=== PATIENT | female | born 1940 | race African-American/Black ===

== ENCOUNTER 2020-02-22 16:40 | Inpatient (IN) | payer MEDICARE ==
[~2020-02-22] VITALS: Ht 165.1 cm; Wt 49.9 kg
[2020-02-22 16:42] VITALS: BP 134/60
[2020-02-22 17:10] LABS: ABSOLUTE NEUTROPHILS 16.7 thou/uL (1.4-8.2); BASOPHILS 0.1 % (0.0-2.0); EOSINOPHILS 0.4 % (0.0-3.0); HEMATOCRIT 35.7 % (37.0-47.0); HEMOGLOBIN 11.8 gm/dL (12.0-15.0); LYMPHOCYTES 6.9 % (24.0-44.0); MCH 27.1 pg (26.0-34.0); MCHC 33.1 g/dL (28.0-37.0); MCV 81.9 fL (80.0-100.0); MONOCYTES 5.9 % (1.0-8.0); PLATELET COUNT 259 thou/uL (150-400); POLYS 86.7 % (36.0-66.0); RBC 4.36 mil/uL (4.20-5.00); RDW 14.7 % (10.5-14.5); WBC 19.3 thou/uL (4.0-11.0)
[2020-02-22 17:21] LABS: CALCIUM 8.7 mg/dL (8.5-10.1); CREATININE 1.8 mg/dL (0.6-1.0); POTASSIUM 4.3 mmol/L (3.5-5.1)
[2020-02-22 17:28] LABS: ALBUMIN 1.9 g/dL (3.4-5.0); TOTAL BILIRUBIN 0.5 mg/dL (0.2-1.0); TOTAL PROTEIN 6.9 g/dL (6.4-8.2)
--- NOTE | 2020-02-22 17:33 | NUR ---
BRANDI TORRES - SON [phone] - CELL [phone] - [address] [place]SE [place], [id number] LETY TORRES - GRANDSON [phone]
[2020-02-22 19:06] LABS: URINE BILIRUBIN NEGATIVE (Negative); URINE BLOOD TRACE (Negative); URINE CLARITY CLEAR; URINE COLOR YELLOW; URINE GLUCOSE-RANDOM* NEGATIVE (Negative); URINE KETONES NEGATIVE (Negative); URINE LEUKOCYTES-REFLEX NEGATIVE (Negative); URINE NITRITE-REFLEX NEGATIVE (Negative); URINE PROTEIN (DIPSTICK) NEGATIVE (Negative)
[2020-02-22] MEDS ORDERED: ARICEPT10 M1 PO (19:16)
[2020-02-22] MEDS ORDERED: ROSUVASTATIN CA10 MG PO (19:16)
[2020-02-22] MEDS ORDERED: TAPAZOLE5 MG PO (19:18)
[2020-02-22 20:22] VITALS: BP 119/77
--- NOTE | 2020-02-22 20:28 | NUR ---
Report attempted to PRINCESS Scott. Unable to take report and will call back
--- NOTE | 2020-02-22 21:17 | NUR ---
SPOKE WITH SON BRANDI, DISCUSSED ROOM ASSIGNMENT AND WHEN POSSIBLE VISIT.
[2020-02-22 21:36] VITALS: BP 119/77
[2020-02-22 21:45] VITALS: BP 121/72; BP 1321/72
[2020-02-23 00:10] VITALS: BP 115/74
[2020-02-23 05:17] VITALS: BP 107/70
[2020-02-23 06:13] LABS: HEMATOCRIT 29.2 % (37.0-47.0); MCH 27.1 pg (26.0-34.0); MCHC 32.8 g/dL (28.0-37.0); MCV 82.8 fL (80.0-100.0); RBC 3.52 mil/uL (4.20-5.00); RDW 14.4 % (10.5-14.5); WBC 14.2 thou/uL (4.0-11.0)
[2020-02-23 06:22] LABS: HEMOGLOBIN 9.6 gm/dL (12.0-15.0)
[2020-02-23 06:50] LABS: ALBUMIN 1.5 g/dL (3.4-5.0); CALCIUM 7.9 mg/dL (8.5-10.1); CREATININE 1.4 mg/dL (0.6-1.0); POTASSIUM 3.6 mmol/L (3.5-5.1); TOTAL BILIRUBIN 0.6 mg/dL (0.2-1.0); TOTAL PROTEIN 5.5 g/dL (6.4-8.2)
[2020-02-23 07:47] VITALS: BP 100/50
--- NOTE | 2020-02-23 10:11 | NUR ---
PT SCREAMS OUT ANYTIME SHE IS TOUCHED OR MOVED. PT PREFERS TO LAY ON SIDE IN TIGHT POSITION. UNABLE TO ASSESS MUSCLE STRENGTH ACCURATELY PT IS NOT COOPERATIVE AND WITHDRAWN. SPOKE WITH PT SON. HE STATES THAT PT HAS REQUIRED HIM TO FEED HER FOR LAST SEVERAL WEEKS. STATES THAT HER SACRAL WOUND GREW RAPIDLY. REPORTS THAT PT ORIENTATION TO SELF IS AT BASELINE. STATES HE HAS ATTEMPTED TO SIT HER UP IN WHEELCHAIR RECENTLY WITH DIFFICULTY.
[2020-02-23 15:23] VITALS: BP 104/68
[2020-02-23 20:45] VITALS: BP 138/85
[2020-02-24 05:40] LABS: HEMATOCRIT 29.4 % (37.0-47.0); HEMOGLOBIN 9.5 gm/dL (12.0-15.0); MCHC 32.4 g/dL (28.0-37.0); MCV 83.3 fL (80.0-100.0); RBC 3.53 mil/uL (4.20-5.00); RDW 14.7 % (10.5-14.5); WBC 13.2 thou/uL (4.0-11.0)
[2020-02-24 05:50] LABS: CALCIUM 8.2 mg/dL (8.5-10.1); CREATININE 1.2 mg/dL (0.6-1.0); POTASSIUM 3.4 mmol/L (3.5-5.1)
--- NOTE | 2020-02-24 07:53 | NUR ---
Pt. was a transfer [facility] last night. She is oriented to self. Pt. will yell outloud when staff tries to clean her up or turn her. She tried to bite a gauge inspector when staff was cleaning her up. Dressing to her coccyx changed this am as it was soiled. Bed alarm is on.
[2020-02-24 08:10] VITALS: BP 119/66
--- NOTE | 2020-02-24 11:52 | NUR ---
Received awake on bed. On nothing per constantino- verified order with Dr Aguirre this AM since pt does not have definite schedule for surgery- as per Dr Aguirre- maintain patient on NPO- mouth swabs done. On MS- not on telemtry; no signs of chest pain, crushing sensation and heaviness. On room air. Vital signs stable. With vasquez in place- marcin care done; output measured and recorded accordingly. Incontinent of bowel, checked frequently and changed as needed. Pt turned on her sides, screams whenever she is touched- verified this with pt's son during his visit- she also do this at home. With sacral wounds- dressing changed this AM by night shift supervisor nurse, checked frequently and changed if needed. Falls bundle in place. With NS at 125cc/hr, infusing well at R hand- wrapped in coban. Verified with Dr Aguirre re: pt's nutrition since she remains on NPO- read on physician's notes re: PPN- none ordered, reached out to physician re: PPN orders, current order is NS at 125cc/hr. Pt's son Dalton visited this AM, update given, requested to talk to physician- contacted Dr Aguirre, contact number given to physician. Pt very tearful, offered re-assurance. To continue monitoring patient.
[2020-02-24 15:42] VITALS: BP 126/70
[2020-02-24 21:05] VITALS: BP 125/91
--- NOTE | 2020-02-25 05:38 | NUR ---
PATIENT ALERT AND ORIENTED TO SELF ONLY. FREQUENT TURNS FROM SIDE TO SIDE. PPN INFUSING W/O COMPLICATION. DENIES PAIN EXCEPT WHEN TURNING. REMAINS NPO WITH MOUTH SWABS. DR. MATHIAS IN THIS AM TO CHECK UP ON PATIENTS STATUS. STATED HE WILL FOLLOW-UP WITH THE FAMILY. LEWIS TO D/D WITH LUCHO URINE. RESTING QUIETLY. WILL MONITOR.
[2020-02-25 07:50] VITALS: BP 151/94
[2020-02-25 15:11] VITALS: BP 141/95
[2020-02-25 19:35] VITALS: BP 143/84
--- NOTE | 2020-02-25 20:00 | NUR ---
NPO changed to pureed diet. ate some food, poor appetite, but tolerated well, no n/v.
--- NOTE | 2020-02-26 04:21 | NUR ---
VSS-AFEBRILE. LUNGS CLEAR-ROOM AIR. AGITATED WITH ANY MOVEMENT OR MANIPULATION FOR CARE. TURNED AND OFFERED ORAL HYDRATION EVERY TWO HOURS FOR COMFORT. FALL PRECAUTIONS IN PLACE.
[2020-02-26 08:06] VITALS: BP 140/84
[2020-02-26 15:45] VITALS: BP 149/93
--- NOTE | 2020-02-26 15:57 | NUR ---
PT ADMITTED RELATED TO POOR APPETITE, INCREASING WOUND SIZE. CM REVIEWED CHART AND SPOKE WITH CARE TEAM. CM CALLED PT'S SON THIS DAY. HE INIDCATED THAT PT HAD BEEN LIVING IN A HOUSE WITH HIM LEAD BURNER HELPER. HE INIDCATED THAT PT HAD BEEN TOTAL CARE LEAD BURNER HELPER. HE INDICATED THAT PT HAS HOSPITAL BED FOR HOME USE. HE HAD LIFTED PT TO AND FROM BED TO CHANGE LINENS. HE INDICATED PT HADN'T BEEN WALKING IN [address] NATALIA LOUIS IN [facility]. SON INDICATED THAT HE ISN'T INTERESTED IN ANY INTERVENTION AT THIS TIME AND THAT HE WANTS FOR PT TO BE ON HOSPICE CARE. HE INDICATED THAT HE IS INTERESTED IN PT GOING TO A FACILITY ON HOSPICE SERVICES. CM PROVIDED HIM A LIST OF FACILITIES TO REVIEW. PHYSICIAN INDICATED THAT PT ISN'T APPROPTIATE FOR HOSPICE HOUSE ADMISSION AT THIS TIME. CM TO FOLLOW INDICATED WITH DC PLANNING.
--- NOTE | 2020-02-26 18:35 | NUR ---
ASSUMED CARE AT SHIFT CHANGE AND ASSESSMENT DOCUMENTED, VSS AND AFEBRILE. Q2 POSITIONED NEEDED FOR COMFORT. VISITED WITH SON AND HE UPDATED WITH POC. WILL CONTINUE TO MONITOR.
[2020-02-26 20:37] VITALS: BP 136/91
[2020-02-27 06:35] LABS: ALBUMIN 1.4 g/dL (3.4-5.0); CREATININE 0.8 mg/dL (0.6-1.0); PHOSPHORUS 2.6 mg/dL (2.5-4.9); POTASSIUM 3.4 mmol/L (3.5-5.1)
[2020-02-27 08:30] VITALS: BP 129/72
--- NOTE | 2020-02-27 12:44 | HC ---
[facility] [place] [place] [address] CONSULTATION Name: RUSSELL TORRES Room #: 460- ADM IN M.R.#: [id number] Admission: 02/22/20 Attend Phys: Shahram Aguirre Discharge: Date of : 38 Report #: [id number] THIS REPORT FOR: cc: DINORAH - Patricia family physician/PCP DINORAH - No family physician/PCP Lionel Jack MD ~ CC: Francisco COPELAND physician/PCP DATE OF SERVICE: 02/23/2020 WOUND CARE CONSULTATION PERSONAL PHYSICIAN: None. CHIEF COMPLAINT: Suspected stage 4 sacral decubitus ulcer. HISTORY OF PRESENT ILLNESS: This is an 79-year-old black female, who presented to the Emergency Department for increasing ulceration in her sacral region, which according to the son was very small approximately a week ago and has nearly doubled in size with increased amount of odor and drainage. The patient according to the records is bedbound and lives with her family with her son being the primary caregiver. The patient herself is unable to give any history secondary to underlying dementia. It is unclear whether she has had any other ulcerations in the past. We have been asked to care for the ulcer while she is here in the hospital. PAST MEDICAL HISTORY: Significant for dementia, hypercholesterolemia, severe debility with being bedbound. CURRENT MEDICATIONS: Aricept, Tapazole, rosuvastatin. DRUG ALLERGIES: None. SOCIAL HISTORY: It is unknown if the patient has a smoking history. FAMILY HISTORY AND REVIEW OF SYSTEMS: Unobtainable because of the patient's significant dementia. PHYSICAL EXAMINATION: VITAL SIGNS: The patient is afebrile. Vital signs are otherwise stable. GENERAL: This is a chronically ill-appearing black female who is cachectic and appears to be in mild distress secondary to symptoms. HEENT: Normocephalic, atraumatic. Mucous membranes are dry. Pupils are round. Sclerae white. NECK: Supple, nontender. [facility] [address] [place] [address] CONSULTATION Name: RUSSELL TORRES Room #: 460-P [facility]#: [id number] Admission: 02/22/20 Attend Phys: Shahram Aguirre Discharge: Date of : 38 Report #: [id number] LUNGS: Clear. HEART: Regular. ABDOMEN: Soft, nontender. Evaluation of sacral region reveals what appears to be a stage 4 decubitus ulcer with significant amount of slough and exposed bone centrally. There is moderate amount of foul-smelling odor. Periwounds mainly intact. There is fairly significant undermining circumferentially. EXTREMITIES: The patient tends to move all extremities without difficulty. Bilateral heels appear to be intact. NEUROLOGIC: Cranial nerves 2-12 grossly intact. Motor and sensory grossly intact. LABORATORY DATA: White count 14.2, hemoglobin 9.6. Sed rate 78. Lactic acid on arrival was 2.7, now down to 1.8, BUN 38, creatinine 1.4. Albumin is 1.5. IMPRESSION: 1. Stage 4 sacral decubitus ulcer present on admission with sepsis. 2. Sepsis secondary to #1. 3. Significant dementia. 4. Severe protein-calorie malnutrition, albumin 1.5. 5. Marked debility. PLAN: The patient will start Dakin's wet to dry dressings to the sacrococcygeal ulcer twice daily and p.r.n. We will put the patient on low air loss mattress, have her be turned every 2 hours. We will use heel protection at all time on the patient while in bed. General Surgery, Dr. Parish Mckee has been consulted to do a debridement as well as consider PEG tube placement and diverting colostomy to help heal this wound. I feel that without PEG tube and diverting colostomy, the chances of healing this significant ulceration would be very slim. After surgery, we will attempt possible rehabilitation with PT, OT as the patient is able. We will also make sure we maximize the patient's protein supplementation hopefully through a PEG tube to help in the healing process. We will continue all other meds including IV antibiotics. We will continue to follow the patient. I appreciate ability to consult. <ELECTRONICALLY SIGNED> By: Lionel Jack MD 02/27/20 [id number] [id number] Lionel Jack MD /nt
--- NOTE | 2020-02-27 16:25 | NUR ---
PT'S SON HAS LIST OF FACILITIES AND IS REVIEWING. CM AGAIN EXPLAINED IF HE IS WANTING TO ELECT HOSPICE SERVICES AT FACILITY THAT PT WOULD BE PATIENT PAY FOR ROOM AND BOARD. HE DOESN'T FEEL THAT HE IS CAPABLE OF PROVIDING CARE PT REQUIRES WITH ADDITIONAL SERVICES IN THE HOME ENVIROMENT. SON IS TO PROVIDE FACILITIES HE IS INTERESTED IN HAVING REFERRALS SENT TO. CM TO FOLLOW INDICATED WITH DC PLANNING.
[2020-02-27 19:17] VITALS: BP 155/89
--- NOTE | 2020-02-27 23:21 | NUR ---
ASSUMED PT CARE [id number]. PT IS AROUSABLE BUT REALLY ONLY TALKS WHEN BEING BOTHERED. PT WILL NOT OPEN HER MOUTH FOR WATER OR ANYTHING ORAL. HUNG AMPICILLIN. PT TOLD ME NOT TO TOUCH HER WHEN I TOLD HER I HAD EVENING MEDS AND THAT ONE OF THEM WAS A SHOT (HEPARIN). PT TOLD ME SHE DIDN'T WANT THE PILLS. WHEN MOVING THE PT SHE WOULD YELL OUT TO STOP. PT IS LAYING IN THE BED FAVORING HER LEFT SIDE. Q2 TURNS TO ALLEVIATE PRESSURE ON HER BOTTOM. WILL CONTINUE TO MONITOR.
[2020-02-28 07:25] VITALS: BP 149/92
--- NOTE | 2020-02-28 11:54 | NUR ---
Received awake on bed. On pureed diet- pt refusing meals; encouraged and assisted and offered snacks but still refused. On MS, not on telemetry; no signs of chest pain, crushing sensation and heaviness observed. On room air. Vital signs stable. With vasquez in place- output measured and recorded accordingly; marcin-care done; Incontinent of bowel- checked frequently and changed as needed. With D51/2NS at 80cc/hr, infusing well at R FA- wrapped in Coban. With sacral ulcer- dressing in place; wound photo to be taken today; dressing to be changed. Falls bundle in place. Pt turned on her sides regularly; with ?DTI on her foot, prafo boots ordered for patient- to be applied once available. Assisted in ADLs. Pt for possible comfort care/palliative- a/w son's decision. Mouth care done to patient. Pt seen and examined by Dr Cardoza this AM, to put pt back to telemetry- applied conveyor monitor to patient. As per CM, pt for covid swab- swab obtained and sent to lab. To continue monitoring patient.
--- NOTE | 2020-02-28 14:30 | NUR ---
SON ASKED THAT REFERRAL BE SENT TO [facility] FOR REVIEW FOR POSSIBLE ADMISSION [facility] WITH HOSPICE SERVICES. REFERRAL SENT. CM SPOKE WITH JERRY IN ADMISSIONS SHE IS AWARE OF REFERRAL AND WILL NOTIFY CM OF DETERMINATION. SHE INDICATED THAT DAILY ROOM AND BOARD RATE WOULD BE $223.00 AND THAT THEY WOULD LIKELY NEED 2 WEEKS PAYMENT UP FRONT. CM NOTIFIED SON OF THIS AND HE INDICATED THAT THEY WOULD BE ABLE TO MANAGE THAT. JERRY INDICATED THAT THEY USE [facility]. SON WAS AGREEABLE WITH REFERRAL BEING SENT TO THEM FOR REVIEW FOR POSSIBLE SERVICES UPON ADMISSION TO [facility]. CM TO FOLLOW INDICATED WITH DC PLANNING.
--- NOTE | 2020-02-28 15:47 | NUR ---
FAXED REFERRAL TO [facility] SPOKE WITH JERRY IN ADM SHE RECEIVED REFERRAL AND WILL REVIEW. FAXED REFERRAL/AND OR TO EVAL/TREAT TO [facility] SPOKE WITH RICHARD IN ADM SHE RECEIVED REFERRAL AND IS NEEDING PT'S SS# AND DPOA PAPERS SO OREN (MACIE) IS GOING TO SPEAK WITH PT'S SON AND GET HER SSN AND DPOA PAPERWORK. DP TO FOLLOW.
[2020-02-28 15:55] VITALS: BP 155/84
[2020-02-28 19:45] VITALS: BP 161/91
--- NOTE | 2020-02-29 04:58 | NUR ---
Pt. rested quietly at intervals during the shift when checked on during frequent rounds. She does not like to be turned or repositioned. Pt. will yell out during any kind of repositioning. She did take several sips of water throughout the night and had a cup of pudding. Bed alarm is on.
[2020-02-29 07:56] VITALS: BP 149/86
--- NOTE | 2020-02-29 09:48 | NUR ---
CM HEARD BACK FROM JERRY AT [facility] LATER YESTERDAY AND SHE INDICATED THAT HER CARE TEAM DECLINED ADMISSION DUE TO PT CALLING OUT DURING REPOSITIONING. CM NOTIFIED PT'S SON AT BEDSIDE. CM OBTAINED SS# FROM SON THERE ISNT' A DPOA DOCUMENT. CM PROVIDED SS# TO [facility]. CM NOTIFIED PT'S SON THAT [facility] WASN'T ACCEPTING. HE INDICATED THAT REFERRAL COULD BE SENT TO [facility] BUT HE ALSO INQUIRED ABOUT TAKING PT BACK HOME WITH HOSPICE SERVICES AND PD. CM PROVIDED LIST OF PD PROVIDERS AND SOME PRICING INFO ON VISITING ANGLES. JAVIER WITH [facility] VISITED WITH PT THIS AM AND INDICATED THAT THEY ARE ABLE TO ACCEPT HER FOR HOSPICE SERVICES RELATED TO END STAGE DEMENTIA UPON DISHCARGE AT A FACIILTY OR AT HOME. CM TO FOLLOW INDICATED WITH DC PLANNING.
[2020-02-29 12:11] VITALS: BP 150/82
[2020-02-29 16:50] VITALS: BP 138/72
--- NOTE | 2020-02-29 19:27 | NUR ---
Assumed pt care this am, Q2 turns done. Frequent feedings and hydration done through out the shift, appetite is very good though pt is a total dependence. FC in place draining light yellow urine,medications crushed and given with applesauce. Wound care and dresing change done, Off platform loader boots in place, heels still boggy. FAll precautions in place, bed bath done abnd marcin care given, skin extremely dry and falling off, moisurizer placed. POC followed, endorsed to the night nurse.
[2020-02-29 20:29] VITALS: BP 116/72
--- NOTE | 2020-02-29 22:35 | NUR ---
ASSUMED CARE OF PT AT 1900. PT IS NONRESPONSIVE VERBALLY BUT DOES RESPOND BY OPENING HER EYES. EATS AND DRINKS WHEN PUTTING ANYTHING UP TO HER MOUTH. DOES NOT GRAB FOR ANYTHING. APPEARS TO NOT STRUGGLE WITH SWALLOWING. CATHETER PATENT WITH LITTLE OUTPUT. SKIN IS DRY. LOTION AND BARRIER CREAM APPLIED. DRESSING TO SACRUM CHANGED DUE TO SOILING FROM BM INCONTINENCE. PRAFO BOOTS, SCDS, AND FALL PRECAUTIONS ARE IN PLACE. CALL LIGHT IS WITHIN REACH. WILL CONTINUE TO MONITOR.
[2020-03-01 07:46] VITALS: BP 157/100
[2020-03-01] MEDS ORDERED: DURAGESIC1 EACH TRANSDERM (08:44)
[2020-03-01] MEDS ORDERED: MORPHINE S10 MG/5 M2 PO (08:46)
--- NOTE | 2020-03-01 14:20 | NUR ---
PHYSICIAN INDICATED THAT SON WANTED TO TAKE PT HOME WITH HOSPICE SERVICES. CM CALLED AND SPOKE WITH SON THIS AM. HE INDICATED THAT WAS TRUE. CM INDICATED THAT AMBULANCE TRANSPORT OR STRETCHER TRANSPORT WOULD BE ARRANGED FOR DC HOME. CM CALLED AND NOTIFIED JAVIER NURSE WITH [facility] AND SHE SPOKE WITH SON REGARDING SUPPLIES THEY WOULD NEED IN THE HOME AND INDICATED THAT EVERYTHING WOULD BE DELIVERED BY 1600. PT'S SON HAD INDICATED THAT HE WOULD BE ON UNIT BUT HAD TO LEAVE. CM CALLED AND LEFT HIM A VM TO SEE TO HIS PROGRESS WITH SETTING UP PD SERVICES WITH VISITING ANGLES. DISHCARGE IS ANTICPATED FOR THIS EVENING. CM TO FOLLOW INDICATED WITH DC PLANNING.
[2020-03-01 14:52] VITALS: BP 157/100
--- NOTE | 2020-03-01 19:59 | NUR ---
Assumed pt care this am, pt is more aler today and at times would respond to preferences for food and drink. Pt is a feeders and total dependence, q2 turns done through out the shift. Fc in place draining light yellow urine, hydration and nutrition promoted through out the shift. Bed bath and marcin care given as needed. Wound care and dressing changes done. Pt has been dc to home with hospice, machine pecan picker time slated at 6 to 6:30 pm. beater room supervisor time changed received a call from [employer] for 8 to 8:30 pm. Received a call from [facility] was informed that family was adamant in receiveing the pt back since the PDN did not appear and they had no one to take care of the pt. Family was wanting to keep the pt in the hospital ror a few more days, house sup informed was advised that pt has been dc. Informed the caller who in turn would inform the family. IV removed, FC kept in place as per MD order. POC followed with, pt is now being picked up by transport. PT is now dc.
== END 2020-03-01 20:20 | disposition hospice, home (50) | DRG 871 ==
LOC: ER 16:40 → 3W 19:30 → 4W 19:30 → EROBS 19:30 → 3W 21:24 → 4W 02-23 19:34
PROVIDERS: Nurse Practitioner; ADMIT Hospitalist; ATTEND Hospitalist
DX: A41.50 Gram-negative sepsis, unspecified (principal); L89.154 Pressure ulcer of sacral region, stage 4; E43 Unspecified severe protein-calorie malnutrition; L98.498 Non-pressure chronic ulcer of skin of other sites with other specified severity; N17.9 Acute kidney failure, unspecified; Z68.1 Body mass index [BMI] 19.9 or less, adult; Z20.828 Contact with and (suspected) exposure to other viral communicable diseases; F03.90 Unspecified dementia, unspecified severity, without behavioral disturbance, psychotic disturbance, mood disturbance, and anxiety; E78.00 Pure hypercholesterolemia, unspecified; E05.90 Thyrotoxicosis, unspecified without thyrotoxic crisis or storm; N18.3 Chronic kidney disease, stage 3 (moderate); R15.9 Full incontinence of feces; M62.50 Muscle wasting and atrophy, not elsewhere classified, unspecified site; G47.00 Insomnia, unspecified; Z74.01 Bed confinement status; Z79.899 Other long term (current) drug therapy
CPT/HCPCS: 10040; 10045; 10879